=== PATIENT | male | born 1935 | race Caucasian/White ===

== ENCOUNTER → 2018-05-14 | Outpatient (CLI) | payer MEDICARE ==
[~2018-05-14] MED LIST: REGADENOSON 0.4 MG/5 ML PF SYG IVP SCH
== END | disposition home or self-care (01) ==
LOC: SHCH 08:50
PROVIDERS: ATTEND Internal Medicine Cardiovascular Disease
DX: I25.10 Atherosclerotic heart disease of native coronary artery without angina pectoris (principal)
CPT/HCPCS: 78452; 93017; 96374; A9500 ×2; J2785

== ENCOUNTER → 2018-05-20 | Outpatient (CLI) | payer MEDICARE | END | disposition home or self-care (01) | LOC: SHCH 13:42 | PROVIDERS: ATTEND Internal Medicine Cardiovascular Disease | DX: I65.23 Occlusion and stenosis of bilateral carotid arteries (principal); I73.9 Peripheral vascular disease, unspecified | CPT/HCPCS: 93880; 93925 ==

== ENCOUNTER → 2018-05-28 | Outpatient (CLI) | payer MEDICARE | END | disposition home or self-care (01) | LOC: SHCH 11:16 | PROVIDERS: ATTEND Internal Medicine Cardiovascular Disease | DX: I51.7 Cardiomegaly (principal); I25.10 Atherosclerotic heart disease of native coronary artery without angina pectoris | CPT/HCPCS: 93306 ==

== ENCOUNTER → 2019-10-07 | Outpatient (CLI) | payer MEDICARE | END | disposition home or self-care (01) | LOC: SHCH 12:33 | PROVIDERS: ATTEND Internal Medicine Cardiovascular Disease | DX: I25.10 Atherosclerotic heart disease of native coronary artery without angina pectoris (principal); I65.23 Occlusion and stenosis of bilateral carotid arteries; I10 Essential (primary) hypertension | CPT/HCPCS: 93306; 93356; 93880 ==

== ENCOUNTER 2020-06-13 21:14 | Emergency (ER) | payer MEDICARE ==
[2020-06-13] MEDS ORDERED: ACETAMINOPHEN EXTRA STRENGTH 500 MG TABLET ONE (21:37)
[2020-06-13 21:41] LABS: BASOPHILS % (AUTO) 0.2 % (0.0-5.0); EOSINOPHILS % (AUTO) 0.1 % (0.0-8.0); LYMPHOCYTES % (AUTO) 7.2 % (21.0-51.0); MEAN CORPUSCULAR HEMOGLOBIN 29.4 pg (27.0-33.0); MEAN CORPUSCULAR HGB CONC 34.1 g/dL (32.0-36.0); MEAN CORPUSCULAR VOLUME 86.4 fL (79-99); MONOCYTES % (AUTO) 8.9 % (3.0-13.0); NEUTROPHILS % (AUTO) 83.3 % (40.0-77.0); PLATELET COUNT (AUTO) 207 K/uL (130-400); RED BLOOD CELL COUNT(AUTO) 4.28 MIL/uL (4.50-6.20)
[2020-06-13 21:49] LABS: POTASSIUM 4.1 mmol/L (3.5-5.1)
[2020-06-13 21:54] LABS: ALBUMIN 3.8 g/dL (3.5-5.0); APPEARANCE,URINE Cloudy (CLEAR); BILIRUBIN,TOTAL 0.4 mg/dL (0.2-1.0); BILIRUBIN,URINE Negative (NEGATIVE); COLOR,URINE Yellow (YELLOW); GLUCOSE, URINE (UA) Negative (NEGATIVE); KETONES,URINE Trace mg/dL (NEGATIVE); LEUKOCYTE ESTERASE ,URINE Moderate (NEGATIVE); NITRATE,URINE Positive (NEGATIVE); OCCULT BLOOD,URINE Moderate (NEGATIVE); PROTEIN,URINE Trace mg/dL (NEGATIVE); TOTAL PROTEIN, SERUM 7.6 g/dL (6.0-8.3)
[2020-06-13 22:01] LABS: BACTERIA,URINE Many /HPF (None Seen); MUCUS,URINE Few LPF (None Seen); SQUAMOUS EPITHELIAL CELL,UR Few /HPF (0-2)
[2020-06-13] MEDS ORDERED: CEFTRIAXONE SODIUM 1 GM ONE (22:11)
== END 2020-06-13 22:34 | disposition home or self-care (01) ==
LOC: EDH 21:14
DX: N39.0 Urinary tract infection, site not specified (principal); I10 Essential (primary) hypertension; E11.9 Type 2 diabetes mellitus without complications; Z87.891 Personal history of nicotine dependence
CPT/HCPCS: 36415; 80053; 81001; 85025; 87077; 87088; 87186; 96374; 99283; J0696; 96365

== ENCOUNTER 2023-07-02 22:55 | Emergency (ER) | payer MEDICARE ==
[~2023-07-02] VITALS: Ht 180.3 cm; Wt 68.0 kg
[~2023-07-02 22:55] MED LIST changes: +ASPI-1197 PO; +FISH1CAP20 PO; +METF-446 PO; +METH-811 PO; +METO50TA18 PO; +OMEP20TA2 PO; -REGADENOSON 0.4 MG/5 ML PF SYG IVP SCH; +TRAM50TA4 PO; +ZOLP5TAB8 PO
[2023-07-02 23:34] LABS: BASOPHILS # (AUTO) 0.01 K/uL (0.00-0.20); BASOPHILS % (AUTO) 0.2 % (0.0-5.0); EOSINOPHILS # (AUTO) 0.03 K/uL (0.00-0.70); EOSINOPHILS % (AUTO) 0.6 % (0.0-8.0); HEMATOCRIT 29.6 % (42-54); IMMATURE GRANULOCYTE ABSOLUTE 0.01 K/uL (0-1); LYMPHOCYTES # (AUTO) 0.5 K/uL (1.0-4.8); MEAN CORPUSCULAR HGB CONC 30.7 g/dL (32.0-36.0); MEAN CORPUSCULAR VOLUME 81.3 fL (79-99); MONOCYTES # (AUTO) 0.1 K/uL (0.1-1.0); MONOCYTES % (AUTO) 1.6 % (3.0-13.0); NEUTROPHILS # (AUTO) 4.4 K/uL (1.8-7.7); NEUTROPHILS % (AUTO) 87.4 % (40.0-77.0); PLATELET COUNT (AUTO) 350 K/uL (130-400); RED BLOOD CELL COUNT(AUTO) 3.64 MIL/uL (4.50-6.20); RED CELL DISTRIBUTION WIDTH 16.1 % (11.0-15.5)
[2023-07-02 23:45] LABS: POTASSIUM 4.2 mmol/L (3.5-5.1)
[2023-07-02 23:50] LABS: ALBUMIN 3.8 g/dL (3.5-5.0); BILIRUBIN,TOTAL 0.2 mg/dL (0.2-1.0); TOTAL PROTEIN, SERUM 7.5 g/dL (6.0-8.3)
[2023-07-02] MEDS: MORPHINE 2 MG SYG IVP ONE (23:54)
[2023-07-02] MEDS: ONDANSETRON 4MG INJ IVP ONE (23:55)
[2023-07-02] MEDS: 0.9%NACL 1000ML 1,000 ML IV ONE (23:55)
[2023-07-03] MEDS ORDERED: IOHEXOL 350 MG/ML 100ML INFUS..BTL IV ONE (00:44)
[2023-07-03 02:31] LABS: ADD UA MICROSCOPIC YES; APPEARANCE,URINE CLEAR (CLEAR); BILIRUBIN,URINE NEGATIVE (NEGATIVE); COLOR,URINE LIGHT-YELLOW (YELLOW); GLUCOSE, URINE (UA) NEGATIVE (NEGATIVE); KETONES,URINE NEGATIVE (NEGATIVE); LEUKOCYTE ESTERASE ,URINE NEGATIVE Leu/uL (NEGATIVE); NITRATE,URINE NEGATIVE (NEGATIVE); OCCULT BLOOD,URINE NEGATIVE (NEGATIVE); PROTEIN,URINE NEGATIVE (NEGATIVE); UROBILINOGEN,URINE 0.2 mg/dL (0.2-1.0)
[2023-07-03 02:38] LABS: BACTERIA,URINE FEW /HPF (None Seen); MUCUS,URINE RARE LPF (None Seen)
[2023-07-03 03:36] VITALS: BP 134/76; PULSE 94; RESP 18; O2SAT 98
== END 2023-07-03 04:01 | disposition home or self-care (01) ==
LOC: EDH 22:55
DX: R19.7 Diarrhea, unspecified (principal); R10.9 Unspecified abdominal pain; E11.9 Type 2 diabetes mellitus without complications; I10 Essential (primary) hypertension; Z79.82 Long term (current) use of aspirin; Z79.84 Long term (current) use of oral hypoglycemic drugs; Z79.899 Other long term (current) drug therapy
CPT/HCPCS: 99285; 74177; 96374; 96361; 96375; 80053; 83690; 85025; 81001; 36415; J2270; J7030; J2405; Q9967

== ENCOUNTER → 2023-08-07 | Outpatient (CLI) | payer MEDICARE | END | disposition home or self-care (01) | LOC: SHCH 07:39 | PROVIDERS: ATTEND Internal Medicine Cardiovascular Disease | DX: I70.0 Atherosclerosis of aorta (principal); I73.9 Peripheral vascular disease, unspecified; K59.00 Constipation, unspecified; R19.7 Diarrhea, unspecified; R63.4 Abnormal weight loss | CPT/HCPCS: 93978 ==

== ENCOUNTER → 2023-08-20 | Outpatient (CLI) | payer MEDICARE ==
[~2023-08-20] MED LIST changes: +IOHEXOL 350 MG/ML 100ML INFUS..BTL IV ONE
== END | disposition home or self-care (01) ==
LOC: RAH 07:48
PROVIDERS: ATTEND Internal Medicine Cardiovascular Disease
DX: I77.811 Abdominal aortic ectasia (principal); I70.0 Atherosclerosis of aorta; I25.10 Atherosclerotic heart disease of native coronary artery without angina pectoris; M47.815 Spondylosis without myelopathy or radiculopathy, thoracolumbar region; N28.1 Cyst of kidney, acquired; E78.00 Pure hypercholesterolemia, unspecified; E78.5 Hyperlipidemia, unspecified; Z98.890 Other specified postprocedural states
CPT/HCPCS: 74175; Q9967

== ENCOUNTER → 2024-03-11 | Outpatient (CLI) | payer MEDICARE ==
[~2024-03-11] MED LIST changes: -IOHEXOL 350 MG/ML 100ML INFUS..BTL IV ONE
[2024-03-11 12:27] LABS: BASOPHILS # (AUTO) 0.04 K/uL (0.00-0.20); BASOPHILS % (AUTO) 0.8 % (0.0-5.0); EOSINOPHILS # (AUTO) 0.11 K/uL (0.00-0.70); EOSINOPHILS % (AUTO) 2.2 % (0.0-8.0); HEMATOCRIT 24.3 % (42-54); IMMATURE GRANULOCYTE ABSOLUTE 0.01 K/uL (0-1); LYMPHOCYTES # (AUTO) 1.3 K/uL (1.0-4.8); LYMPHOCYTES % (AUTO) 24.7 % (21.0-51.0); MEAN CORPUSCULAR HEMOGLOBIN 22.5 pg (27.0-33.0); MEAN CORPUSCULAR HGB CONC 29.2 g/dL (32.0-36.0); MEAN CORPUSCULAR VOLUME 77.1 fL (79-99); MONOCYTES # (AUTO) 0.6 K/uL (0.1-1.0); MONOCYTES % (AUTO) 11.2 % (3.0-13.0); NEUTROPHILS # (AUTO) 3.1 K/uL (1.8-7.7); NEUTROPHILS % (AUTO) 60.9 % (40.0-77.0); PLATELET COUNT (AUTO) 312 K/uL (130-400); RED BLOOD CELL COUNT(AUTO) 3.15 MIL/uL (4.50-6.20); RED CELL DISTRIBUTION WIDTH 16.5 % (11.0-15.5); WHITE BLOOD COUNT (AUTO) 5.1 K/uL (4.8-10.8)
[2024-03-11 12:31] LABS: % IRON SATURATION 4.1 % (30-44)
[2024-03-11 12:32] LABS: HEMOGLOBIN A1C 6.4 % (4.0-6.0)
[2024-03-11 13:02] LABS: ALBUMIN 3.5 g/dL (3.5-5.0); BILIRUBIN,TOTAL 0.3 mg/dL (0.2-1.0); CREATININE 1.1 mg/dL (0.5-1.3); POTASSIUM 5.5 mmol/L (3.5-5.1); T4 (THYROXINE) 6.7 ug/dL (4.7-13.3); THYROID STIMULATING HORMONE 4.43 uIU/mL (0.36-3.74); TOTAL PROTEIN, SERUM 6.8 g/dL (6.0-8.3)
== END | disposition home or self-care (01) ==
LOC: LAB 08:05
PROVIDERS: ATTEND Internal Medicine Cardiovascular Disease
DX: D64.9 Anemia, unspecified (principal); Z79.899 Other long term (current) drug therapy
CPT/HCPCS: 36415; 80053; 80061; 82728; 83036; 83540; 83550; 84436; 84443; 84479; 85025

== ENCOUNTER 2024-04-07 16:28 | Emergency (ER) | payer MEDICARE ==
[~2024-04-07] VITALS: Ht 172.7 cm; Wt 61.2 kg
[2024-04-07 17:20] LABS: BASOPHILS # (AUTO) 0.03 K/uL (0.00-0.20); BASOPHILS % (AUTO) 0.3 % (0.0-5.0); EOSINOPHILS # (AUTO) 0.08 K/uL (0.00-0.70); EOSINOPHILS % (AUTO) 0.9 % (0.0-8.0); HEMATOCRIT 26.1 % (42-54); IMMATURE GRANULOCYTE ABSOLUTE 0.02 K/uL (0-1); LYMPHOCYTES % (AUTO) 11.1 % (21.0-51.0); MEAN CORPUSCULAR HEMOGLOBIN 23.5 pg (27.0-33.0); MEAN CORPUSCULAR HGB CONC 30.3 g/dL (32.0-36.0); MEAN CORPUSCULAR VOLUME 77.7 fL (79-99); MONOCYTES # (AUTO) 0.6 K/uL (0.1-1.0); NEUTROPHILS # (AUTO) 7.4 K/uL (1.8-7.7); NEUTROPHILS % (AUTO) 80.5 % (40.0-77.0); PLATELET COUNT (AUTO) 244 K/uL (130-400); RED BLOOD CELL COUNT(AUTO) 3.36 MIL/uL (4.50-6.20); WHITE BLOOD COUNT (AUTO) 9.2 K/uL (4.8-10.8)
[2024-04-07 17:37] LABS: CREATININE 0.9 mg/dL (0.5-1.3); POTASSIUM 4.6 mmol/L (3.5-5.1)
[2024-04-07 18:02] LABS: ALBUMIN 3.5 g/dL (3.5-5.0); BILIRUBIN,DIRECT 0.1 mg/dL (0.0-0.3); BILIRUBIN,TOTAL 0.2 mg/dL (0.2-1.0); TOTAL PROTEIN, SERUM 6.6 g/dL (6.0-8.3)
--- NOTE | 2024-04-07 18:29 | HMCIMG ---
CT ABDOMEN/PELVIS W/CONTRAST HISTORY: Obstruction COMPARISON: None TECHNIQUE: Multiple sequential axial images of the abdomen and pelvis were obtained from the dome of the diaphragm through symphysis pubis. Patient was given 100 cc of Omnipaque through intravenous route. Oral contrast was not given. FINDINGS: No pleural effusion is seen bilaterally. Soft tissue lipoma is seen in the right posterior lower hemithorax measuring 3.4 x 17 mm adjacent to the right eighth and ninth ribs. There is no evidence of parenchymal disease or pulmonary nodule of the visualized lower lungs. Degenerative changes of the thoracolumbar spine are present. The heart is not enlarged. Coronary arterial calcifications are seen. Postlaminectomy changes are seen of the lower lumbar spine. Liver measures 14 cm. There is large left renal cyst measuring 9.8 x 7.8 cm. The liver, spleen, adrenal glands and pancreas are unremarkable. There is no evidence of hydronephrosis bilaterally. No evidence of renal stone is seen. Fecal material is seen in the colon. There are normal size retroperitoneal and mesenteric lymph nodes. No ascites is seen. Atherosclerotic changes are present. Pelvic sidewalls are symmetric bilaterally. Bladder is well distended without wall thickening. IMPRESSION: 1. Large amount of fecal material is seen in the colon. Findings are suggestive constipation. Large left renal cyst. Diffuse atherosclerosis. CT was performed with one or more following dose reduction techniques: automated exposure control, adjustment of the mA and kv according to patient's size, or use of a iterative reconstruction technique.
[2024-04-07 18:31] LABS: APPEARANCE,URINE CLEAR (CLEAR); BILIRUBIN,URINE NEGATIVE (NEGATIVE); COLOR,URINE LIGHT-YELLOW (YELLOW); GLUCOSE, URINE (UA) NEGATIVE (NEGATIVE); KETONES,URINE NEGATIVE (NEGATIVE); LEUKOCYTE ESTERASE ,URINE NEGATIVE Leu/uL (NEGATIVE); NITRATE,URINE NEGATIVE (NEGATIVE); OCCULT BLOOD,URINE NEGATIVE (NEGATIVE); PH,URINE 5.5 (5.0-8.0); PROTEIN,URINE NEGATIVE (NEGATIVE); UROBILINOGEN,URINE 0.2 mg/dL (0.2-1.0)
[2024-04-07 18:34] LABS: ADD UA MICROSCOPIC NO
[2024-04-07] MEDS: polyETHYLene GLYCol 3350 17 GM POWD.PACK PO ONE (19:19)
[2024-04-07] MEDS: LACTULOSE 20 GM/30 ML UDCUP PO ONE (19:19)
--- NOTE | 2024-04-07 19:34 | NUR ---
1400 URINE OUTPUT AFTER FC INSERTION
--- NOTE | 2024-04-07 20:48 | ERN ---
General Chief Complaint: Urinary Retention Stated Complaint: ABD PAIN Time Seen by MD: 16:57 Time Seen by Midlevel: 16:57 Source: patient History of Present Illness Initial Comments Patient is an 80-year-old male presenting to the emergency department with urinary retention and constipation that has been ongoing for the last two days. He reports some diffuse abdominal pain but no nausea, vomiting, or any other symptoms reported at this time. Patient does report suffering from chronic constipation. He usually takes MiraLax, Colace at home but has not been taking it for the last couple of days. He was recently placed on iron supplementations but when he became constipated he stopped his medication. Patient also reports having a history of chronic anemia Allergies: Coded Allergies: No Known Drug Allergies (Unverified Allergy, Unknown, 05/14/16) Home Meds Active Scripts Docusate Sodium (Colace) 100 Mg Capsule, 100 MG PO TID for constipation, #30 CAP 0 Refills Prov:DAT FLORES 04/07/24 Polyethylene Glycol 3350 (Miralax) 17 Gram Powd.pack, 17 GM PO DAILY for constipation, #20 PACKET 0 Refills Prov:DAT FLORES 04/07/24 Lactulose (Lactulose) 10 Gram/15 Ml (15 Ml) Solution, 15 ML PO DAILY for constipation for 30 Days, #450 ML 0 Refills Prov:DAT FLORES 04/07/24 Reported Medications Aspirin (Aspirin) 81 Mg Tab.chew, 81 MG PO HS, TAB.CHEW 12/26/22 Omeprazole Magnesium (Prilosec Otc) 20 Mg Tablet.dr, 20 MG PO DAILY, TAB 12/26/22 [place]-3 Fatty Acids/Fish Oil (Fish Oil 1000 mg/Cap) 300 Mg-1,000 Mg Capsule, 1000 MG PO DAILY, CAP 12/26/22 Methocarbamol (Methocarbamol) 500 Mg Tablet, 500 MG PO BID, TAB 12/26/22 Metformin HCl (Metformin HCl) 1,000 Mg Tablet, 1000 MG PO BID, TAB 12/26/22 Metoprolol Tartrate (Metoprolol Tartrate) 50 Mg Tablet, 50 MG PO BID, TAB 12/26/22 Zolpidem Tartrate (Zolpidem Tartrate) 5 Mg Tablet, 5 MG PO HS, TAB 12/26/22 Tramadol Hcl (Tramadol HCl) 50 Mg Tablet, 50 MG PO TID, TAB 12/26/22 Past Medical History Past Medical History: Anemia, Diabetes-Type II, High Cholesterol, Hypertension, Prostatitis Past Surgical History: Other Surgical History Other: BACK SX, CARDIAC X2 Social History Social History: Negative, Lives with family ROS Dictation CONSTITUTIONAL: Negative except for HPI HEAD/FACE: Negative except for HPI EENT: Negative except for HPI RESPIRATORY: Negative except for HPI GASTROINTESTINAL/ABDOMINAL: Negative except for HPI GENITOURINARY: Negative except for HPI MUSCULOSKELETAL: Negative except for HPI INTEGUMENTARY: Negative except for HPI NEUROLOGICAL/PSYCH: Negative except for HPI HEMATOLOGIC/LYMPHATIC: Negative except for HPI All Systems Negative, Except as noted above. 13 point review of systems assessed and all negative except for above. Physical Exam Physical Exam Dictation Vital Signs reviewed General Appearance: Alert, oriented x 3, no acute distress, well developed, nour ished. Head and Face: non-traumatic. Eyes: PERRL, pink conjunctivas, eyelid no trauma, anterior chamber with arcus senilis. Ears: Pinnas intact and no signs of trauma or erythema ear canals clear and no discharge TM no erythema Nose: No discharge, no bleeding. Oropharynx: Mouth normal, tongue pink, pharynx clear,no erythema, tonsils no exudates, no abscesses noted, mucous mem brane moist Neck: Supple, non-tender, no thyromegaly, no masses, no JVD, no bruits Breast:Deferred Chest:No tenderness, no crepitus, no paradoxical movement, no retractions Lungs:Clear, well-ventilated, symmetric, no rales, no wheezing, no rhonchi, no stridor, good breath sounds bilaterally Heart: Regular rate, regular rhythm, no murmur, no gallops Vascular: no peripheral edema, Abdomen: Soft, positive bowel sounds, nondistended, no guarding, Diffuse abdominal tenderness, no rebound, no masses no hepatomegaly, no splenomegaly, no Johnson's sign, no hernias. Rectal: Deferred Genital: Deferred Neurological: Normal speech, motor function intact, sensory function intact Musculoskeletal: Neck nontender, full range of motion, back nontender, full range of motion, Extremities: nontender, full range of motion Skin: Color pink, dry, no turgor, no rash, no lacerations, no abrasions, no contusions. Lymphatic: Deferred Results Laboratory and Microbiology Lab and Micro Result Laboratory Tests Test 04/07/24 17:16 04/07/24 18:05 White Blood Count 9.2 K/uL (4.8-10.8) Red Blood Count 3.36 MIL/uL (4.50-6.20) L Hemoglobin 7.9 g/dL (14.0-18.0) L Hematocrit 26.1 % (42-54) L Mean Corpuscular Volume 77.7 fL (79-99) L Mean Corpuscular Hemoglobin 23.5 pg (27.0-33.0) L Mean Corpuscular Hemoglobin Concent 30.3 g/dL (32.0-36.0) L Red Cell Distribution Width 19.0 % (11.0-15.5) H Platelet Count 244 K/uL (130-400) Mean Platelet Volume 8.6 fL (7.5-10.5) Immature Granulocyte % (Auto) 0.2 % (0-1) Neutrophils (%) (Auto) 80.5 % (40.0-77.0) H Lymphocytes (%) (Auto) 11.1 % (21.0-51.0) L Monocytes (%) (Auto) 7.0 % (3.0-13.0) Eosinophils (%) (Auto) 0.9 % (0.0-8.0) Basophils (%) (Auto) 0.3 % (0.0-5.0) Neutrophils # (Auto) 7.4 K/uL (1.8-7.7) Lymphocytes # (Auto) 1.0 K/uL (1.0-4.8) Monocytes # (Auto) 0.6 K/uL (0.1-1.0) Eosinophils # (Auto) 0.08 K/uL (0.00-0.70) Basophils # (Auto) 0.03 K/uL (0.00-0.20) Absolute Immature Granulocyte (auto 0.02 K/uL (0-1) Nucleated Red Blood Cells 0.0 % (0.0-0.19) Red Blood Cell Morphology See comments Sodium Level 138 mmol/L (136-145) Potassium Level 4.6 mmol/L (3.5-5.1) Chloride Level 103 mmol/L (101-111) Carbon Dioxide Level 28 mmol/L (21-32) Blood Urea Nitrogen 20 mg/dL (7-18) H Creatinine 0.9 mg/dL (0.5-1.3) Glomerular Filtration Rate Calc 82 mL/min (>90) Random Glucose 90 mg/dL (70-105) Lactic Acid Level 1.2 mmol/L (0.8-2.5) Total Calcium 9.4 mg/dL (8.5-10.1) Total Bilirubin 0.2 mg/dL (0.2-1.0) Direct Bilirubin 0.1 mg/dL (0.0-0.3) Aspartate Amino Transf (AST/SGOT) 17 U/L (10-37) Alanine Aminotransferase (ALT/SGPT) 19 U/L (12-78) Alkaline Phosphatase 81 U/L (50-136) Total Protein 6.6 g/dL (6.0-8.3) Albumin 3.5 g/dL (3.5-5.0) Lipase 44 U/L (16-77) Urine Color LIGHT-YELLOW (YELLOW) Urine Appearance CLEAR (CLEAR) Urine pH 5.5 (5.0-8.0) Urine Specific [place] 1.017 (1.001-1.031) Urine Protein NEGATIVE mg/dL (NEGATIVE) Urine Glucose (UA) NEGATIVE mg/dL (NEGATIVE) Urine Ketones NEGATIVE mg/dL (NEGATIVE) Urine Occult Blood NEGATIVE (NEGATIVE) Urine Nitrate NEGATIVE (NEGATIVE) Urine Bilirubin NEGATIVE mg/dL (NEGATIVE) Urine Urobilinogen 0.2 mg/dL (0.2-1.0) Urine Leukocyte Esterase NEGATIVE [place]/uL Labs Reviewed?: Yes MDM MDM: Patient is an 80-year-old male presenting to the emergency department with urinary retention and constipation that has been ongoing for the last two days. He reports some diffuse abdominal pain but no nausea, vomiting, or any other symptoms reported at this time. Patient does report suffering from chronic constipation. He usually takes MiraLax, Colace at home but has not been taking it for the last couple of days. He was recently placed on iron supplementations but when he became constipated he stopped his medication. Patient also reports having a history of chronic anemia. on physical examination patient has some moderate diffuse abdominal tenderness. A bladder scan was performed which shows over 700 cc of fluid. A Grewal catheter was inserted which return approximately 800 cc of urine. Patient reports feeling significantly improved. A CT scan was obtained to rule out a small-bowel obstruction however CT scan of the abdomen and pelvis reveals large stool burden consistent with constipation with no eviden of small-bowel obstruction. There is large fecal material in the rectal vault. Patient was given lactulose and MiraLax in the emergency department but was unable to have a bowel movement. Patient was manually disimpacted while in the emergency department. Patient does report feeling improved. Patient was sent home with Fleet enemas, MiraLax, and Colace. His CBC shows no leukocytosis. His hemoglobin is stable at 7.9 which is improved from previous hemoglobins. Patient does have a history of chronic anemia and specifically denies any dizziness, chest pain or any other symptoms at this time. His chemistries unremarkable. His urinalysis does not show any evidence of infection. No need for antibiotics at this time. Patient was discharged home with an outpatient follow up with Urology for further evaluation of urinary retention. Today his kidney functions normal no need for emergent urology consultation. Patient will be discharged home with supportive management. Differential diagnosis: Small-bowel obstruction, constipation, urinary tract infection, urinary retention , There are no social concerns with this patient. Prescription drug management Prescriptions will include: Colace, MiraLax, lactulose Medical management and examination interpretation discussions were had by me with other qualified healthcare professionals as indicated for the patient's care. ED Course Orders Procedure Category Date Status Time Bladder Scan CPOE 04/07/24 Transmitted 16:53 Cbc With Differential LAB 04/07/24 Complete 16:57 Basic Metabolic Panel LAB 04/07/24 Complete 16:57 Lactic Acid LAB 04/07/24 Complete 17:00 Lipase LAB 04/07/24 Complete 17:00 Hepatic Function Panel LAB 04/07/24 Complete 17:00 Urinalysis Profile LAB 04/07/24 Complete 17:00 Ct Abdomen/Pelvis CT 04/07/24 Resulted W/Contrast 17:00 Lactulose 20 Gm/30 Ml PHA 04/07/24 Complete Udcup (Constulose 19:00 Polyethylene Glycol PHA 04/07/24 Complete 3350 (Miralax 3350 1 19:00 *Nursing CPOE 04/07/24 Transmitted Communication: 19:21 Current Medications Medications (Trade) Dose Ordered Sig/Adrian Route PRN Reason Start Time Stop Time Status Last Admin Dose Admin Lactulose (Constulose 20gm/ 30ml Udcup) 20 gm ONCE ONCE PO 04/07/24 19:00 04/07/24 19:01 DC 04/07/24 19:19 Polyethylene Glycol (MIRalax 3350 17 GM POWD.PACK) 17 gm ONCE ONCE PO 04/07/24 19:00 04/07/24 19:01 DC 04/07/24 19:19 Vital Signs Date Time Temp Pulse Resp B/P (MAP) Pulse Ox O2 Delivery O2 Flow Rate FiO2 04/07/24 23:05 98.2 74 16 140/60 98 Room Air* 0 21 04/07/24 18:07 98.2 74 16 145/68 98 Room Air* 0 21 04/07/24 16:49 98.6 76 20 149/66 99 Room Air [address] [address] IMAGING REPORT Signed PATIENT: JACKIE MONTELONGO MR#: [id number] : 1935 SEX: M AGE: 88 LOCATION: [facility] ORDER 01 STATUS: REG ER REPORT#: [id number] SERVICE 99 REASON: R/O OBSTRUCTION ORDERING PHYSICIAN: DAT FLORES PROCEDURE: ABD PEL W - CT ABDOMEN/PELVIS W/CONTRAST CT ABDOMEN/PELVIS W/CONTRAST HISTORY: Obstruction COMPARISON: None TECHNIQUE: Multiple sequential axial images of the abdomen and pelvis were obtained from the dome of the diaphragm through symphysis pubis. Patient was given 100 cc of Omnipaque through intravenous route. Oral contrast was not given. FINDINGS: No pleural effusion is seen bilaterally. Soft tissue lipoma is seen in the right posterior lower hemithorax measuring 3.4 x 17 mm adjacent to the right eighth and ninth ribs. There is no evidence of parenchymal disease or pulmonary nodule of the visualized lower lungs. Degenerative changes of the thoracolumbar spine are present. The heart is not enlarged. Coronary arterial calcifications are seen. Postlaminectomy changes are seen of the lower lumbar spine. Liver measures 14 cm. There is large left renal cyst measuring 9.8 x 7.8 cm. The liver, spleen, adrenal glands and pancreas are unremarkable. There is no evidence of hydronephrosis bilaterally. No evidence of renal stone is seen. Fecal material is seen in the colon. There are normal size retroperitoneal and mesenteric lymph nodes. No ascites is seen. Atherosclerotic changes are present. Pelvic sidewalls are symmetric bilaterally. Bladder is well distended without wall thickening. IMPRESSION: 1. Large amount of fecal material is seen in the colon. Findings are suggestive constipation. Large left renal cyst. Diffuse atherosclerosis. CT was performed with one or more following dose reduction techniques: automated exposure control, adjustment of the mA and kv according to patient's size, or use of a iterative reconstruction technique. DICTATED BY: LASHELL GUEVARA MD DATE: 04/07/241821 ELECTRONICALLY SIGNED BY: LASHELL GUEVARA MD DATE: 04/07/241828 DX & DISP Disposition: Discharge Departure Impression: Primary Impression: Urinary retention Additional Impressions: Constipation, Renal cyst, left Condition: Stable Scripts Docusate Sodium (Colace) 100 Mg Capsule 100 MG PO TID for constipation, #30 CAP 0 Refills Prov: DAT FLORES 04/07/24 Polyethylene Glycol 3350 (Miralax) 17 Gram Powd.pack 17 GM PO DAILY for constipation, #20 PACKET 0 Refills Prov: DAT FLORES 04/07/24 Lactulose (Lactulose) 10 Gram/15 Ml (15 Ml) Solution 15 ML PO DAILY for constipation for 30 Days, #450 ML 0 Refills Prov: DAT FLORES 04/07/24 Additional Instructions: Your blood work today is stable. Your CT scan of the abdomen and pelvis shows large amount of stool burden consistent with constipation. There was also an incidental finding of a left renal cysts. You will need to follow up with Nephrology/Urology. A Grewal catheter was inserted today to help you urinate. There was no urinary obstruction on CT scan however you will need to be evaluated by Urology for outpatient evaluation. Follow up with your primary care doctor in 2-3 days for repeat evaluation. Return to the ER if you develop any new or worsening symptoms Referrals: RENAE MO MD (PCP) ROBYN CORONA MD Time of Disposition: 20:48 I have reviewed the case, and I agree with, Diagnosis and Plan I performed the substantive portion of the visit. I have reviewed and personally made and approve the management plan that is documented in the note by myself or the ERASMO. I acknowledge for responsibility for the patient's management plan. DAT FLORES Apr 07, 2024 20:48
--- NOTE | 2024-04-07 21:23 | NUR ---
PT IN ROOM PEND DIGITAL BY DISIMPACTION AT THIS TIME READY TO DC PREMATURE
--- NOTE | 2024-04-07 22:00 | NUR ---
patients family member came to nurses station to ask for a pillow. none in linen bin, Housekeeping called to bring pillows.
--- NOTE | 2024-04-07 22:10 | NUR ---
pillow taken to room. patients response was "about time, i have been here for 4hrs without a pillow". patient family member, sitting at bedside with her arms crossed, mumbles "now if they would only get things done, that would be great." [employer] HEL[employer] Alberto, notified that the patient is in a room and they would appreciate getting things going.
[2024-04-07] MEDS ORDERED: POLY17PO4 PO (22:29)
[2024-04-07] MEDS ORDERED: LACT-451 PO (22:29)
[2024-04-07] MEDS ORDERED: DOCU-116 PO (22:29)
[2024-04-07 23:05] VITALS: BP 140/60; PULSE 74; RESP 16; TEMP 98.3; O2SAT 98
[2024-04-13] MEDS ORDERED: METF-446 PO (09:56)
[2024-04-13] MEDS ORDERED: ATOR40TA69 PO (09:56)
[2024-04-13] MEDS ORDERED: TRAM100T34 PO (10:00)
[2024-04-13] MEDS ORDERED: METH-811 PO (10:02)
[2024-04-13] MEDS ORDERED: FOLI1 PO (10:03)
[2024-04-15] MEDS ORDERED: LEVO-70 PO (15:27)
== END 2024-04-07 23:14 | disposition home or self-care (01) ==
LOC: EDH 16:28
DX: R33.9 Retention of urine, unspecified (principal); K59.09 Other constipation; N28.1 Cyst of kidney, acquired; E11.9 Type 2 diabetes mellitus without complications; E78.00 Pure hypercholesterolemia, unspecified; I10 Essential (primary) hypertension; Z79.84 Long term (current) use of oral hypoglycemic drugs; Z79.899 Other long term (current) drug therapy
CPT/HCPCS: 36415; 51702; 74177; 80048; 80076; 81003; 83605; 83690; 85025; 99284; 99285

== ENCOUNTER 2024-12-05 13:30 | Emergency (ER) | payer MEDICARE ==
[~2024-12-05] VITALS: Ht 175.3 cm; Wt 59.9 kg
[~2024-12-05 13:30] MED LIST changes: +AMOX1TAB16 PO; +ATOR40TA69 PO; +LACT-451 PO; +TRAM100T34 PO; -TRAM50TA4 PO; -ZOLP5TAB8 PO
--- NOTE | 2024-12-05 14:59 | HMCIMG ---
EXAM: CT Head Without IV contrast. CLINICAL HISTORY: fall TECHNIQUE: Axial computed tomography images of the head/brain without intravenous contrast. COMPARISON: None provided. FINDINGS: BRAIN: No acute bleed or infarct. Chronic ischemic and atrophic changes. VENTRICLES: No hydrocephalus. ORBITS: The orbits are unremarkable. SINUSES AND MASTOIDS: The paranasal sinuses and mastoid air cells are clear. BONES: No fracture. SOFT TISSUES: Unremarkable. IMPRESSION: No acute bleed or infarct. Chronic ischemic and atrophic changes. [facility]
--- NOTE | 2024-12-05 16:13 | ERN ---
General Chief Complaint: Mechanical Fall Stated Complaint: FALL Time Seen by MD: 13:33 History of Present Illness Initial Comments Patient is a an 89-year-old gentleman coming in after he had a slip and fall at home. Per patient he was ambulating using socks which states that he lost his footing on a linoleum uneven floor falling back hitting himself in the back of the head. Long with the his he states he has a lower back discomfort and left leg discomfort. Patient is able to ambulate with some discomfort. Timing/Duration: unsure Allergies: Coded Allergies: No Known Drug Allergies (Unverified Allergy, Unknown, 05/14/16) Home Meds Active Scripts Amoxicillin/Potassium Clav (Amox Tr-K Clv 875-125 mg Tab) 875 Mg-125 Mg Tablet, 1 TAB PO BID for 7 Days, #14 TAB 0 Refills Prov:NITO MANCINI MD 08/26/24 Lactulose (Lactulose) 10 Gram/15 Ml (15 Ml) Solution, 15 ML PO DAILY for constipation for 30 Days, #450 ML 0 Refills Prov:DAT FLORES 04/07/24 Reported Medications Methocarbamol (Methocarbamol) 500 Mg Tablet, 1 TAB PO TID for 30 Days, #90 TAB 0 Refills 04/13/24 Tramadol HCl (Tramadol HCl ER) 100 Mg Tab.er.24h, 50 MG PO TID, TAB 04/13/24 Metoprolol Tartrate (Metoprolol Tartrate) 50 Mg Tablet, 1 TAB PO BID for 30 Days, #60 TAB 0 Refills 04/13/24 Metformin HCl (Metformin HCl) 1,000 Mg Tablet, 1 TAB PO BIDMEALS for 30 Days, #60 TAB 0 Refills 04/13/24 Atorvastatin Calcium (LIPITOR) 40 Mg Tablet, 1 TAB PO DAILY for 30 Days, #30 TAB 0 Refills 04/13/24 Aspirin (Aspirin) 81 Mg Tab.chew, 81 MG PO HS, TAB.CHEW 12/26/22 Omeprazole Magnesium (Prilosec Otc) 20 Mg Tablet.dr, 20 MG PO DAILY, TAB 12/26/22 [place]-3 Fatty Acids/Fish Oil (Fish Oil 1000 mg/Cap) 300 Mg-1,000 Mg Capsule, 1000 MG PO DAILY, CAP 12/26/22 Past Medical History Past Medical History: Diabetes-Type II, Hypertension Past Surgical History: Other Surgical History Other: BACK SURGERIES Social History Social History: Negative, Lives with family ROS Dictation CONSTITUTIONAL: No chills, no fever, no weakness, no diaphoresis, no malaise. HEAD/FACE: signs of trauma. EENT: No eye pain, no blurred vision, no tearing, no double vision, no ear pain, no ear discharge, no nose pain, no nasal congestion, no throat pain, no throat swelling, no mouth pain. RESPIRATORY: No cough, no orthopnea, no SOB, no stridor, no wheezing. CARDIOVASCULAR: No chest pain, no edema, no palpitations, no syncope. GASTROINTESTINAL/ABDOMINAL: No abdominal pain, no constipation, no diarrhea, no nausea, no vomiting. GENITOURINARY: No abnormal discharge, no dysuria, no frequent urination, no hematuria. No complaints of pain in the genitals. MUSCULOSKELETAL: No back pain, no gout, no joint pain, no joint swelling, no muscle pain, no muscle stiffness, no neck pain. INTEGUMENTARY: No change in color, no change in hair/nails, no dryness, no le theo, no lumps, no rash. NEUROLOGICAL/PSYCH: No anxiety, not depressed, no emotional problem, no headache, no numbness, no pre-existing deficit, no history of seizures, no tremors, no weakness. HEMATOLOGIC/LYMPHATIC: Not anemic, no history of blood clots, no apparent bleeding, no bruising, glands not swollen. All Systems Negative, Except as Noted. Physical Exam Physical Exam Dictation VITAL SIGNS: Reviewed. GENERAL APPEARANCE: Alert, oriented x3, no acute distress, obese. HEAD AND FACE: occipital hematoma EYES: PERRL, pink conjunctivas, eyelid no trauma, anterior chamber clear. EARS: Pinnas intact and no signs of trauma or erythema. Ear canals clear and no discharge. TMs no erythema. NOSE: No discharge, no bleeding. OROPHARYNX: Mouth normal, teeth no caries, tongue pink. Pharynx clear, no erythema. Tonsils no exudates, no abscesses noted. Mucous membrane moist. NECK: Supple, non-tender, no thyromegaly, no masses, no JVD, no bruits. BREAST: Deferred. CHEST: No tenderness, no crepitus, no paradoxical movement, no retractions. LUNGS: Clear, well-ventilated, symmetric, no rales, no wheezing, no rhonchi, no stridor, good breath sounds bilaterally. HEART: Regular rate, regular rhythm, no murmur, no gallops. VASCULAR: No peripheral edema. ABDOMEN: Soft, positive bowel sounds, nondistended, no guarding, nontender, no rebound, no masses no hepatomegaly, no splenomegaly, no Johnson's sign, no hernias. RECTAL: Deferred. GENITAL: Deferred. NEUROLOGICAL: Normal speech, gross motor function intact, gross sensory function intact. MUSCULOSKELETAL: Neck nontender, full range of motion, half backer, full range of motion. EXTREMITIES: Nontender, full range of motion. SKIN: Color pink, dry, no turgor, no rash, no lacerations, no abrasions, no contusions. LYMPHATICS: Deferred. Results Laboratory and Microbiology Labs Reviewed?: Yes EKG/XRAY/US/CT/MRI X-RAY Comment [place] [address] [id number] IMAGING REPORT Signed PATIENT: JACKIE MONTELONGO MR#: [id number] : 1935 SEX: M AGE: 89 LOCATION: [facility] ORDER 26 STATUS: [facility] REPORT#: [id number] SERVICE 24 REASON: fall ORDERING PHYSICIAN: ROSELINE SPIVEY MD PROCEDURE: LUMB 2 3VW - LUMBAR SPINE 2-3VWS EXAM: CR Lumbar Spine, 3 View. CLINICAL HISTORY: fall COMPARISON: 12/26/22 13:35 EDT DX - LUMBAR SPINE 2-3VWS FINDINGS: BONES: Bones are osteoporotic and demineralized. No acute fracture or aggressive appearing osseous lesion. L2-3 paraspinal fixation anjali and pedicle screws with lumbar spine fusion posteriorly. Chronic compression fracture of L2 of at least 20%. No definite acute fracture. Mild marginal spurring at multiple levels. ALIGNMENT: Straightening of the expected lordotic curvature of the lumbar spine. No significant scoliosis. DISCS / DEGENERATIVE CHANGES: Degenerative disc space narrowing most pronounced at L4-5 and L5-S1. Facet joint degenerative changes with sclerosis and hypertrophy throughout the mid and lower lumbar spine. SOFT TISSUES: The soft tissues are unremarkable. IMPRESSION: Chronic L2 compression fracture of at least 20%. Fusion and L2-3. No hardware failure or loosening. Negative for acute fracture or acute bony abnormality. Bones appear demineralized. Osteoporosis. Moderate lumbar spondylosis changes. Degenerative disc space narrowing most pronounced L4-5 and L5-S1. /[place] DICTATED BY: TOMÁS ABAD Jr., MD DATE: 12/05/241730 ELECTRONICALLY SIGNED BY: TOMÁS ABAD Jr., MD DATE: 12/05/241730 [facility] [place] [id number] IMAGING REPORT Signed PATIENT: JACKIE MONTELONGO MR#: [id number] : 1935 SEX: M AGE: 89 LOCATION: [facility] ORDER 26 STATUS: [facility] REPORT#: [id number] SERVICE 24 REASON: fall ORDERING PHYSICIAN: ROSELINE SPIVEY MD PROCEDURE: SAC FARIDA 2V - SACRUM/COCCYX 2+VWS EXAM: CR Sacrum and Coccyx, 3 View. CLINICAL HISTORY: fall COMPARISON: None provided. FINDINGS: BONES: Bones are osteoporotic and demineralized. No acute fracture or aggressive appearing osseous lesion. Bony alignment is anatomic. SOFT TISSUES: The soft tissues are unremarkable. IMPRESSION: No acute osseous abnormality. Osteoporosis. A subtle bone abnormality or fracture may not be readily apparent on x-rays, thus clinical correlation and further imaging including follow up CT, MRI, or follow up x-rays are advised as needed. /[place] DICTATED BY: TOMÁS ABAD Jr., MD DATE: 12/05/241731 ELECTRONICALLY SIGNED BY: TOMÁS ABAD Jr., MD DATE: 12/05/241731 CT Scan Comment [place] [id number] [place] [id number] IMAGING REPORT Signed PATIENT: JACKIE MONTELONGO MR#: [id number] : 1935 SEX: M AGE: 89 LOCATION: [facility] ORDER 26 STATUS: [facility] REPORT#: [id number] SERVICE 24 REASON: fall ORDERING PHYSICIAN: ROSELINE SPIVEY MD PROCEDURE: HEAD WO - CT HEAD/BRAIN W/O CONTRAST EXAM: CT Head Without IV contrast. CLINICAL HISTORY: fall TECHNIQUE: Axial computed tomography images of the head/brain without intravenous contrast. COMPARISON: None provided. FINDINGS: BRAIN: No acute bleed or infarct. Chronic ischemic and atrophic changes. VENTRICLES: No hydrocephalus. ORBITS: The orbits are unremarkable. SINUSES AND MASTOIDS: The paranasal sinuses and mastoid air cells are clear. BONES: No fracture. SOFT TISSUES: Unremarkable. IMPRESSION: No acute bleed or infarct. Chronic ischemic and atrophic changes. /[place] DICTATED BY: ZACHARY CROW MD DATE: 12/05/241558 ELECTRONICALLY SIGNED BY: ZACHARY CROW MD DATE: 12/05/241558 [facility] MDM: Differential diagnosis: Fall, coccyx fracture, lumbar strain, concussion, Rationale: Tests considered and ordered secondary to shared decision making include: Previous outside records reviewed: Old ER visits. Risk of complication and/or morbidity or mortality of patient management: None Medications-Per medication reconciliation Need for hospitalization: Patient does not meet criteria for hospitalization. Need for emergency major/minor surgery: No Patient is a 89-year-old male coming in after he had a mechanical fall. Per patient he was ambulating slipped on a linoleum floor landed on the back of his head. He did not lose consciousness but has chronic history of surgical repair of spines in his lumbar area. X-ray did not disclose acute findings. Possible acute coccyx fracture which was conveyed to patient we will take precautions as if it was fractured. ED Course Orders Procedure Category Date Status Time Ct Head/Brain W/O CT 12/05/24 Resulted Contrast 14:25 Lumbar Spine 2-3vws RAD 12/05/24 Resulted 14:25 Sacrum/Coccyx 2+Vws RAD 12/05/24 Resulted 14:25 Acetaminophen 500mg PHA 12/05/24 Complete Tab (Tylenol 500mg T 16:00 Acetaminophen 500mg PHA 12/05/24 Complete Tab (Tylenol 500mg T 16:01 Current Medications Medications (Trade) Dose Ordered Sig/Adrian Route PRN Reason Start Time Stop Time Status Last Admin Dose Admin Acetaminophen (TYLenol 500MG TAB) 500 mg STK-MED ONCE .ROUTE 12/05/24 16:01 12/05/24 16:02 DC Acetaminophen (TYLenol 500MG TAB) 1,000 mg ONCE ONCE PO 12/05/24 16:00 12/05/24 16:05 DC 12/05/24 16:10 Vital Signs Date Time Temp Pulse Resp B/P (MAP) Pulse Ox O2 Delivery O2 Flow Rate FiO2 12/05/24 14:34 98.1 66 17 153/73 99 Room Air* 0 21 12/05/24 13:31 98.6 68 18 131/58 96 Room Air 0 DX & DISP Disposition: Discharge Departure Impression: Primary Impression: Concussion Additional Impression: Fractured coccyx Condition: Stable Scripts Acetaminophen (Tylenol) 500 Mg Tab 1 TAB PO Q6HPRN PRN for pain or fever for 5 Days, #30 TAB 0 Refills Prov: ROSELINE SPIVEY MD 12/05/24 Additional Instructions: FOLLOW-UP WITH PRIMARY CARE PROVIDER IN 1 TO 2 DAYS. TAKE MEDICATIONS DIRECTED HERE IN THE EMERGENCY ROOM. OKAY TO CONTINUE HOME MEDICATIONS UNLESS OTHERWISE DISCUSSED DURING YOUR VISIT IN THE EMERGENCY ROOM TODAY. RETURN TO YOUR NEAREST EMERGENCY ROOM IF SYMPTOMS WORSEN OR IF THERE IS NO IMPROVEMENT. CALL 911 IF YOU NEED IMMEDIATE ASSISTANCE. TAKE TYLENOL [id number] NEEDED AND IF NO CONTRAINDICATIONS ARE PRESENT. INCREASE ORAL HYDRATION. A WOUND CULTURE OR URINE CULTURE WAS ORDERED HERE IN THE EMERGENCY ROOM DEPARTMENT PLEASE FOLLOW-UP WITH PRIMARY CARE PROVIDER AND ADVISE THEM TO GET REPORTS FROM OUR FACILITY. IF YOU HAD ANY SAL WRAP/SPLINTS THAT WERE APPLIED HERE, PLEASE DO NOT REMOVE THEM UNTIL YOU SEE YOUR PRIMARY CARE OR SPECIALTY. Referrals: Referrals: RENAE MO MD (PCP) Time of Disposition: 16:52 ROSELINE SPIVEY MD Dec 05, 2024 16:13
--- NOTE | 2024-12-05 16:31 | HMCIMG ---
EXAM: CR Lumbar Spine, 3 View. CLINICAL HISTORY: fall COMPARISON: 12/26/22 13:35 EDT DX - LUMBAR SPINE 2-3VWS FINDINGS: BONES: Bones are osteoporotic and demineralized. No acute fracture or aggressive appearing osseous lesion. L2-3 paraspinal fixation anjali and pedicle screws with lumbar spine fusion posteriorly. Chronic compression fracture of L2 of at least 20%. No definite acute fracture. Mild marginal spurring at multiple levels. ALIGNMENT: Straightening of the expected lordotic curvature of the lumbar spine. No significant scoliosis. DISCS / DEGENERATIVE CHANGES: Degenerative disc space narrowing most pronounced at L4-5 and L5-S1. Facet joint degenerative changes with sclerosis and hypertrophy throughout the mid and lower lumbar spine. SOFT TISSUES: The soft tissues are unremarkable. IMPRESSION: Chronic L2 compression fracture of at least 20%. Fusion and L2-3. No hardware failure or loosening. Negative for acute fracture or acute bony abnormality. Bones appear demineralized. Osteoporosis. Moderate lumbar spondylosis changes. Degenerative disc space narrowing most pronounced L4-5 and L5-S1. /[place]
--- NOTE | 2024-12-05 16:33 | HMCIMG ---
EXAM: CR Sacrum and Coccyx, 3 View. CLINICAL HISTORY: fall COMPARISON: None provided. FINDINGS: BONES: Bones are osteoporotic and demineralized. No acute fracture or aggressive appearing osseous lesion. Bony alignment is anatomic. SOFT TISSUES: The soft tissues are unremarkable. IMPRESSION: No acute osseous abnormality. Osteoporosis. A subtle bone abnormality or fracture may not be readily apparent on x-rays, thus clinical correlation and further imaging including follow up CT, MRI, or follow up x-rays are advised as needed. /[place]
[2024-12-05] MEDS ORDERED: ACET-66 PO (16:53)
[2024-12-05 17:39] VITALS: BP 134/84; PULSE 66; RESP 17; TEMP 98.3; O2SAT 99
== END 2024-12-05 17:48 | disposition home or self-care (01) ==
LOC: EDH 13:30
DX: S32.2XXA Fracture of coccyx, initial encounter for closed fracture (principal); S06.0X0A Concussion without loss of consciousness, initial encounter; E11.9 Type 2 diabetes mellitus without complications; I10 Essential (primary) hypertension; Z79.82 Long term (current) use of aspirin; Z79.899 Other long term (current) drug therapy; W01.0XXA Fall on same level from slipping, tripping and stumbling without subsequent striking against object, initial encounter; Y93.89 Activity, other specified; Y92.89 Other specified places as the place of occurrence of the external cause; Y99.8 Other external cause status
CPT/HCPCS: 70450; 72100; 72220; 99285